=== PATIENT | male | born 1975 | race Caucasian/White ===

== ENCOUNTER → 2016-11-30 | Outpatient (CLI) | payer OTHER ==
[~2016-11-30] MED LIST: CENTRUM SILVER1 EAC2 PO; DYAZIDE; KEFLEX500 MG PO; MAXZIDE-25 MG1 EACH PO; PROAIR HFA8.5 GM INH; SINGULAIR 10 MG10 MG PO
--- NOTE | ~2016-11-30 | EKG ---
[address] [place] [address] ELECTROCARDIOGRAM REPORT Name: COREEN RASMUSSEN II Room #: [facility]#: [id number] Admission: 11/30/16 Attend Phys: Jesus Murray MD Discharge: Date of : 71 Report #: [id number] THIS REPORT FOR: //name// [facility] Test Date: 2016-11-30 Test Time: 16:16:10 Pat Name: COREEN RASMUSSEN Department: Room: Gender: M Head Machine Feeder: Carson HUFFMAN : 1975 Requested By: Jesus Murray Order Number: [id number] MD: Hiram Dejesus Measurements Intervals Duncan Rate: 64 P: 19 CT: 160 QRS: 4 QRSD: 106 T: -4 QT: 426 QTc: 440 Interpretive Statements Sinus rhythm Borderline T abnormalities, inferior leads No previous ECG available for comparison Electronically Signed On 12-03-2016 10:55:28 CDT by Hirma Dejesus [email or web address] <ELECTRONICALLY SIGNED> By: Hiram Dejesus MD 12/03/16 1055 1616 1616 Hiram Dejesus MD /AMALIA
[2016-11-30 16:07] LABS: ABSOLUTE NEUTROPHILS 10.3 thou/uL (1.4-8.2); BASOPHILS 0.6 % (0.0-2.0); EOSINOPHILS 0.6 % (0.0-3.0); HEMATOCRIT 47.8 % (42.0-52.0); HEMOGLOBIN 15.9 gm/dL (14.0-18.0); LYMPHOCYTES 15.3 % (24.0-44.0); MANUAL DIFF NO; MCH 27.9 pg (26.0-34.0); MCHC 33.2 g/dL (28.0-37.0); PLATELET COUNT 307 thou/uL (150-400); POLYS 78.5 % (36.0-66.0); RBC 5.69 mil/uL (4.50-6.00); RDW 14.6 % (10.5-14.5); WBC 13.1 thou/uL (4.0-11.0)
[2016-11-30 16:15] LABS: ANION GAP 7 mmol/L (7-16); BUN 10 mg/dL (7-18); CALCIUM 9.2 mg/dL (8.5-10.1); CHLORIDE 101 mmol/L (98-107); CO2 30 mmol/L (21-32); CREATININE 0.8 mg/dL (0.7-1.3); GLUCOSE 90 mg/dL (74-106); POTASSIUM 3.9 mmol/L (3.5-5.1); SODIUM 138 mmol/L (136-145)
[2016-11-30 16:19] LABS: ALBUMIN 3.8 g/dL (3.4-5.0); ALKALINE PHOSPHATASE 80 U/L (46-116); DIRECT BILIRUBIN < 0.1 mg/dL (<0.1-0.3); SGOT 16 U/L (15-37); SGPT 17 U/L (30-65); TOTAL BILIRUBIN 0.3 mg/dL (<0.1-1.0); TOTAL PROTEIN 7.9 g/dL (6.4-8.2)
== END ==
LOC: CV 15:34
PROVIDERS: Otolaryngology Plastic Surgery within the Head & Neck
DX: C43.9 Malignant melanoma of skin, unspecified (principal); Z80.8 Family history of malignant neoplasm of other organs or systems

== ENCOUNTER 2016-12-06 05:55 | Day surgery (SDC) | payer OTHER ==
[~2016-12-06] VITALS: Ht 175.3 cm; Wt 140.6 kg
--- NOTE | ~2016-12-06 | O ---
[facility] [place] [address] OPERATIVE REPORT Name: COREEN RASMUSSEN II Room #: DEP [facility].#: [id number] Admission: 12/06/16 Attend Phys: Jesus Murray MD Discharge: 12/06/16 Date of : 71 Report #: [id number] THIS REPORT FOR: //name// CC: Niels Gilliam DO Jesus Oates MD DATE OF SERVICE: 12/06/2016 SURGEON: Jesus Murray MD. PREOPERATIVE DIAGNOSIS: Malignant melanoma, right presybeterian/right cheek, Breslow thickness 0.9 mm, Blaise level not classified. POSTOPERATIVE DIAGNOSIS: Malignant melanoma, right presybeterian/right cheek, Breslow thickness 0.9 mm, Blaise level not classified. OPERATION PERFORMED: 1. Wide local excision, malignant melanoma, right presybeterian/cheek 3.5 cm. 2. Cervical facial fasciocutaneous rotation flap reconstruction, right cheek. 3. [place] lymph node biopsy, right parotid. 4. Facial nerve monitor x 2 hours. INDICATIONS: The patient is a 41-year-old gentleman referred by his [facility] dermatologic surgeon for definitive treatment of recently diagnosed malignant melanoma, right cheek. The patient had a biopsy done that showed a Breslow thickness 0.9 mm. Blaise level was not classified. This showed mitoses no more than 1 per millimeter. There was no regression. Perineural invasion and angiolymphatic invasion was not identified. This had been present in a mole that had been present in this area for many years. It was otherwise asymptomatic. Recommendations were made for wide local excision with 1 cm margins due to a Breslow thickness of 0.9 mm, less than 1 mm. In addition, sentinel lymph node biopsy as I am unsure with a shave biopsy the true depth. I discussed reconstruction options as flaps and grafts as necessary for the right cheek. DESCRIPTION OF PROCEDURE: The patient was brought to the operating room and placed supine on the operating table. After adequate general anesthesia was achieved via endotracheal intubation, the lesion in the right cheek was examined. There was an overlying crust from the previous biopsy, which was removed revealing a little over 1 cm irregular appearing lesion, nonhealing. There was no pigmentation. The area was injected with less than 1 mL of Lymphazurin and then, the area massaged to spread the Lymphazurin in anticipation of sentinel node biopsy. [address] [address] OPERATIVE REPORT Name: COREEN RASMUSSEN II Room #: DEP [facility]#: [id number] Admission: 12/06/16 Attend Phys: Jesus Murray MD Discharge: 12/06/16 Date of : 71 Report #: [id number] The patient had been sent to nuclear medicine preoperatively for injection in the area for lymphoscintigraphy. He was then turned 180 degrees. As a separate part of the procedure, the XCluster HQ nerve integrity monitor was applied to the right face for continuous intraoperative monitoring of the facial nerve. Needle electrodes were placed in the orbicularis murali and orbicularis oculi muscles and ground electrodes were placed in the soft tissue overlying the sternum and contralateral shoulder. Electrode resistance and impedance was measured and found to be acceptable. Threshold and stimulus intensity parameters were set and the patient was monitored for the entirety of the case of approximately 2 hours in order to locate and protect the facial nerve. Prepped with Betadine and draped in sterile fashion. The procedure began with a measurement of the lesion, 1 cm margins were taken around the gross visible lesion as at the Breslow thickness was less than 1 mm. These were then injected with 1% Xylocaine with 1:100,000 epinephrine. Incision was made then in a circular fashion around the 1 mm margin and this was dissected down to the underlying superficial myoaponeurotic system of the parotid. This was then completely dissected. The superior margin marked with suture at 12 o'clock. This was placed in formalin and delivered off the field to pathology. Instruments were then changed and evaluation was made for the sentinel node biopsy based on the Lymphazurin distribution and on the gamma probe, this stained to the right parotid inferiorly. Prior to making an incision, a thought was put into reconstruction of this 3.5 cm defect. I elected to proceed with a cervical facial fasciocutaneous flap reconstruction from the right cheek and extending postauricular. This was designed as a bilobed rotation. Once this was marked out, this was injected with 1% Xylocaine with 1:100,000 epinephrine and then, the incision was begun down the preauricular crease and extended under the lobule and into the postauricular sulcus. Wide undermining was undertaken with facelift scissors superficial to the superficial myoaponeurotic system. The flap was then held forward with 2-0 silks while the sentinel node biopsy was accomplished. Dissection was made along the lymphatics that had been stained by Lymphazurin and inferiorly just anterior to the lobule, a 1 cm lymph node was identified. This was confirmed with the gamma probe for sentinel lymph node biopsy. Ten-second counts were taken on this lymph node, in vivo with a 10-second count of 1360. The lymph node was then dissected and removed. Ex vivo 10-second count on the [place] stand was 1970. A repeat 10-second count was done on the dissection bed of the parotid with a returning 10-second count of 121 showing complete removal of the sentinel node. The gamma probe was then used to probe around the parotid. No other suspicious nodes were found and there was no other significant blue coloration from the Lymphazurin. Hemostasis was then assured with bipolar cauterization. The facial nerve probe was then used to find the branches inferiorly and protect them. These stimulated at the end of the case. [facility] [address] [place] [address] OPERATIVE REPORT Name: COREEN RASMUSSEN II Room #: [facility]#: [id number] Admission: 12/06/16 Attend Phys: Jesus Murray MD Discharge: 12/06/16 Date of : 71 Report #: [id number] Attention was then turned to the cervicofacial rotation flap. The design had been made and then executed with a #15 blade. The flap was then rotated into the 3.5 cm defect and rotated as a bilobed flap. This was sutured in position with interrupted 4-0 Vicryl deep dermal sutures. Complete closure was able to be achieved of the right cheek. Small amount of alteration was made inferiorly along the ear lobule where this flap was advanced. This was then rotated into the postauricular sulcus. The flap was inset completely. Prior to closure, a 10-Omani David drain was placed through a separate incision in the hair on the right posterior neck and curled into the wound. This was sutured in place with 2-0 silk connected to bulb suction. Once the deep dermal sutures were placed, the skin was closed with a combination of 35 wide alecia postauricular and 6-0 nylon on the skin anteriorly. Mastisol and Steri-Strips were then applied. The patient was then returned anesthesia, awakened without difficulty, returned to recovery in good condition. Sponge and needle counts were correct. There were no complications. Blood loss was 50 mL. He will be watched until awake and stable, presuming he does well, discharged to home with plans to follow with me in 48 hours for drain removal, 1 week for suture removal. Written and verbal discharge instructions are given to his . Discharge medications will include cephalexin 500 mg 1 t.i.d. for 10 days, Phenergan suppository 25 mg 1 per rectum q. 4-6 hours p.r.n., hydrocodone/acetaminophen 7.5/325 one to two q. 4-6 hours p.r.n. He is instructed on light activity and a soft diet. The patient understands that the margins of this defect will be predicated on final pathology. If margins are positive in any way. this will require reexcision of this area until margins are clear. He has also been made aware that if the sentinel node biopsy is positive, he will have to return to the operating room for more formal neck dissection and parotidectomy. <ELECTRONICALLY SIGNED> By: Jesus Murray MD 12/13/16 1437 1506 1622 Jesus Murray MD /nt
--- NOTE | ~2016-12-06 | S ---
[facility] [address] [place] [address] SURGICAL PATH RPT PROCEDURE Name: COREEN HARVEY REZA Room #: DEP [facility].#: [id number] Admission: 12/06/16 Date of : 71 Discharge: 12/06/16 Report #: [id number] Path Case #: [id number] PATHOLOGY REPORT COLLECTION DATE: 12/06/2016 RECEIVED DATE: 12/06/2016 SUBMITTING PHYS: Dr. Jesus Murray OTHER PHYS: Dr. Niels Gilliam * AMENDED (CORRECTED) REPORT * SPECIMEN(S) RECEIVED: A.Melanoma right cheek B.[place] node biopsy right parotid * * * * * * * * * * * * FINAL DIAGNOSIS: This amendment is issued to report the diagnosis. A. Skin, "melanoma right cheek," excisional biopsy: - Previous biopsy site changes with focal epidermal ulceration with underlying chronic inflammation with foreign body giant cell reaction. - No residual malignant melanoma is seen. - Incidental intradermal nevus. - Incidental junctional nevus arising in a lentigo. - All surgical resection margins are free. B Lymph node (sentinel node biopsy right parotid): - Reactive changes, negative for malignancy by histology and immunohistochemistry. COMMENT: Immunoperoxidase stain S-100 stains histiocytes. MART-1 red is negative. Based on the immunoperoxidase stains, there is no evidence of metastatic melanoma. The updated staging will be pT1b, (sn)N0. This case was also reviewed by a dermatopathologist in our department. Gabriela at Dr. Jesus Murray's office was informed of the reason for Amended report. Previous biopsy report from [facility] ([id number]) is reviewed. Their diagnosis is: of malignant melanoma was reviewed. (LOUISE:; d/t: 12/11/16) Professional services performed under supervision of [facility] Vacuum Cleaner Repairer at [address] [place] [address]. Technical services performed by [facility] under supervision of a [facility] Vacuum Clean[employer] Repairer at [address] [place] [address], [address] [place] [address]. PATHOLOGIST: Ilan Zhong M.D. REPORT ELECTRONICALLY SIGNED BY: Ilan Zhong M.D. [facility] [address] [place] [address] SURGICAL PATH RPT PROCEDURE Name: COREEN HARVEY II Room #: [facility]#: [id number] Admission: 12/06/16 Date of : 71 Discharge: 12/06/16 Report #: [id number] Path Case #: [id number] DATE/TIME: 12/12/2016 13:04 * * * * * * * * * * * * GROSS PATHOLOGY: A. The specimen is received in formalin labeled "Coreen Harvey II, melanoma right cheek, short suture maxwell 12:00". Received is an irregular excision of skin measuring 3.2 x 3.1 x 0.6 cm in greatest dimensions with a suture designating the 12:00 margin. The surgical margins are inked as follows: 12 to 3:00-yellow, 3 to 6:00-blue and 6 to 12:00-black. The epidermal surface displays a well circumscribed, irregular in contour, focally crusted and hewitt-brown previous biopsy site measuring 0.8 x 0.6 cm. This site is 1.0 cm from the 12:00 margin, 1.2 cm from the 3:00 margin, 1.2 cm from the 6:00 margin, and 1.2 cm from the 9:00 margin. Sectioning reveals pale hewitt to yellow-hewitt cut surfaces with no grossly apparent abnormal pigmentation. The specimen is sectioned into ten pieces and entirely submitted in cassettes A1 through A9, with the 12 and 6:00 aspects placed in cassette A9. A gross photograph is taken. B. The specimen is received in formalin labeled "Coreen Harvey II, sentinel node biopsy right parotid". Received are two segments of yellow-hewitt lobulated tissue measuring 1.5 x 1.2 x 0.5 cm in aggregate dimensions. Dissection and palpation of the specimen reveals a single lymph node measuring 1.0 cm in maximum dimensions. The lymph node is submitted entirely in cassette B1. Immunohistochemical stains are ordered. (CAA; 12/07/2016) CLINICAL HISTORY: Melanoma right cheek and ear INITIAL CPT CODE(S): A; 65135 B; 03829, 49363, 81182 Professional services performed by [facility] at [facility], [address] [place] [address]. Technical services performed by [employer] at [address] [place] [address], [address], [place] [address]. [facility] [address] [place] [address] PHONE: [phone] DIRECTOR: Kris Hussein M.D. * * * END OF REPORT * * *
[2016-12-06 09:00] VITALS: BP 132/76
[2016-12-06] MEDS ORDERED: PROMS25 WY RECTAL (15:11)
[2016-12-06] MEDS ORDERED: KEFLEX500 MG PO (15:11)
[2016-12-06] MEDS ORDERED: HYDROCODONE-APA1 TA1 PO (15:11)
[2016-12-06 15:16] VITALS: BP 132/76
== END 2016-12-06 16:00 | disposition home or self-care (01) ==
LOC: OR 05:55 → TBA 05:55 → OR 10:53
DX: C43.39 Malignant melanoma of other parts of face (principal); J45.909 Unspecified asthma, uncomplicated; I10 Essential (primary) hypertension; Z98.890 Other specified postprocedural states; Z87.891 Personal history of nicotine dependence; Z79.899 Other long term (current) drug therapy
CPT/HCPCS: 50010; 50101; 50331; 50386; 50398; 51412; 52220; 52225; 56526; 56528; 62110; 62900; 70005